=== PATIENT | male | born 2000 | race Caucasian/White ===

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

== ENCOUNTER 2021-07-22 01:15 | Emergency (ER) | payer OTHER ==
--- OUTSIDE RECORDS SUMMARY | 2021-07-22 01:17 | XMS REPORT | Continuity of Care Document ---
:2000 Author Organization [facility] t Address [address] [place] [address] Care Team Providers Name Role Phone COLEEN Attending Clinician Unavailable Problems This patient has no known problems. Allergies, Adverse Reactions, Alerts This patient has no known allergies or adverse reactions. Medications This patient has no known medications. Procedures This patient has no known procedures. Encounters Start End Encounter Admission Attending Care Care Encounter Source Date/Time Date/Time Type Type Clinicians Facility Department ID 2021-07-11 2021-07-11 [id number] 00:00:00 00:00:00 [facility] [address] Results This patient has no known results.
[2021-07-22] MEDS ORDERED: dexAMETHasone 10 MG/ML VIAL ONE (02:38)
[2021-07-22 03:20] LABS: Potassium 3.6 mmol/L (3.5-5.1)
[2021-07-22 03:22] LABS: Absolute Lymphocytes (CBC) 1.8 K/uL (0.7-4.9); Hematocrit 41.8 % (39.6-49.0); MPV 8.7 fL (7.6-11.3); RBC Red Blood Cell Count 4.81 M/uL (4.33-5.43)
--- NOTE | 2021-07-22 04:34 | ER ---
Nurse's Notes [facility] Name: Ananth Dias Age: 20 yrs Sex: Male : 2000 Arrival Date: 07/22/2021 Time: 01:18 Bed 11 Private MD: Diagnosis: Acute lymphadenitis of face, head and neck Presentation: 07/22 02:17 Chief complaint: Patient states: I have had a soar throat for about a week. Coronavirus jb4 screen: At this time, the client does not indicate any symptoms associated with coronavirus-19. Ebola Screen: No symptoms or risks identified at this time. Initial Sepsis Screen: Does the patient meet any 2 criteria? No. Patient's initial sepsis screen is negative. Does the patient have a suspected source of infection? No. Patient's initial sepsis screen is negative. Risk Assessment: Do you want to hurt yourself or someone else? Patient reports no desire to harm self or others. Onset of symptoms was July 22, 2021. Transition of care: patient was not received from another setting of care. 02:17 Method Of Arrival: Ambulatory jb4 02:17 Acuity: ARIELLE 4 jb4 03:51 Acuity: ARIELLE 3 tw5 Historical: - Allergies: 02:18 No Known Allergies; jb4 - Home Meds: 02:18 None [Active]; jb4 - PMHx: 02:18 None; jb4 - PSHx: 02:18 None; jb4 - Immunization history:: Adult Immunizations up to date. - Social history:: Smoking status: Patient denies any tobacco usage or history of. Patient/guardian denies using alcohol, street drugs. - Family history:: not pertinent. - Hospitalizations: : No recent hospitalization is reported. Screenin:48 Abuse screen: Denies threats or abuse. Denies injuries from another. Nutritional tw5 screening: No deficits noted. Tuberculosis screening: No symptoms or risk factors identified. Fall Risk None identified. Assessment: 02:18 General: Appears in no apparent distress. comfortable, Behavior is calm, cooperative, jb4 appropriate for age. Pain: Complains of pain in throat Pain does not radiate. Pain currently is 5 out of 10 on a pain scale. Respiratory: Airway is patent Respiratory effort is even, labored, Respiratory pattern is regular, symmetrical. EENT: Throat is clear is reddened bilaterally with gag reflex present. 04:48 Respiratory: Breath sounds are clear. tw5 Vital Signs: 02:17 BP 110 / 84; Pulse 66; Resp 16; Temp 98.1(TE); Pulse Ox 100% on R/A; Weight 65.77 kg; jb4 Height 6 ft. 1 in. (185.42 cm); Pain 5/10; 02:17 Body Mass Index 19.13 (65.77 kg, 185.42 cm) jb4 ED Course: 01:18 Patient arrived in ED. bp1 01:30 Silver Shi MD is Attending Physician. rn 02:17 Tez Torres, SERINA is Primary Nurse. jb4 02:18 Triage completed. jb4 02:18 Arm band placed on right wrist. jb4 02:56 Initial lab(s) drawn, by me, sent to lab. Inserted saline lock: 20 gauge in right jb4 antecubital area, using aseptic technique. Blood collected. 03:26 CT Soft Tissue Neck W/contr In Process Unspecified. EDMS 04:48 Patient has correct armband on for positive identification. Bed in low position. Call tw5 light in reach. Side rails up X 1. Pulse ox on. NIBP on. Door closed. Noise minimized. Moved to private room. Verbal reassurance given. 04:48 No provider procedures requiring assistance completed. IV discontinued, intact, tw5 bleeding controlled, No redness/swelling at site. Pressure dressing applied. Administered Medications: 02:56 Drug: Decadron - Dexamethasone 10 mg Route: IVP; Site: right antecubital; jb4 04:48 Follow up: Response: No adverse reaction tw5 Outcome: 04:34 Discharge ordered by . rn 04:48 Discharged to home ambulatory, with family. tw5 04:48 Condition: good 04:48 Discharge instructions given to patient, Instructed on discharge instructions, follow up and referral plans. Demonstrated understanding of instructions, follow-up care, medications, Prescriptions given X 1. 04:49 Patient left the ED. tw5 Signatures: Dispatcher [employer] EDMS Silver Shi MD MD rn Bryson, James, SERINA RN jb4 Jacquesleander Jessica bp1 Cheyanne Coleman tw5 Corrections: (The following items were deleted from the chart) 02:25 02:17 Resp 16bpm; 65.77 kg; Height 6 ft. 1 in.; BMI: 19.1; Pain 5/10; jb4 jb4
--- NOTE | 2021-07-22 04:35 | EDPHYS ---
Physician Documentation [facility] Name: Ananth Dias Age: 20 yrs Sex: Male : 2000 Arrival Date: 07/22/2021 Time: 01:18 Bed 11 Private MD: ED Physician Silver Shi HPI: 07/22 02:31 This 20 yrs old Male presents to ER via Ambulatory with complaints of Sore Throat. rn 02:31 The patient presents with sore throat, pain in neck. The patient describes throat pain rn as raw, swelling sensation. Onset: The symptoms/episode began/occurred 1 week(s) ago. Severity of symptoms: At their worst the symptoms were moderate, in the emergency department the symptoms are unchanged. Modifying factors: The symptoms are alleviated by nothing, the symptoms are aggravated by swallowing, Patient's oral intake status: good. Associated signs and symptoms: Pertinent positives: dysphagia, fever, Sore throat Pertinent negatives. The patient has not experienced similar symptoms in the past. The patient has been recently seen by a physician:. Pt reports sore throat for 1 week, not improving despite abx. NO trauma. Had fever but fever gone. Reports pain with movement of neck and with swallowing. No sob. . Historical: - Allergies: 02:18 No Known Allergies; jb4 - Home Meds: 02:18 None [Active]; jb4 - PMHx: 02:18 None; jb4 - PSHx: 02:18 None; jb4 - Immunization history:: Adult Immunizations up to date. - Social history:: Smoking status: Patient denies any tobacco usage or history of. Patient/guardian denies using alcohol, street drugs. - Family history:: not pertinent. - Hospitalizations: : No recent hospitalization is reported. ROS: 02:31 Constitutional: Negative for chills, and weight loss, Eyes: Negative for injury, pain, rn redness, and discharge, ENT: + sore throat Neck: + neck pain Cardiovascular: Negative for chest pain, palpitations, and edema, Respiratory: Negative for shortness of breath, cough, wheezing, and pleuritic chest pain, Abdomen/GI: Negative for abdominal pain, nausea, vomiting, diarrhea, and constipation, MS/Extremity: Negative for injury and deformity. Exam: 02:31 Constitutional: This is a well developed, well nourished patient who is awake, alert, rn and in no acute distress. Head/Face: Normocephalic, atraumatic. Eyes: Periorbital areas with no swelling, redness, or edema. ENT: + pharyngeal erythema, no swelling or exudate. Uvula midline, no TECHNICAL SALES REPRESENTATIVES. Neck: + tender bilateral cervical LAD, no crepitus, no focal masses, able to extend neck with only mild anterior pain Cardiovascular: Regular rate and rhythm. No pulse deficits. Respiratory: No increased work of breathing, no retractions or nasal flaring. Vital Signs: 02:17 BP 110 / 84; Pulse 66; Resp 16; Temp 98.1(TE); Pulse Ox 100% on R/A; Weight 65.77 kg; jb4 Height 6 ft. 1 in. (185.42 cm); Pain 5/10; 02:17 Body Mass Index 19.13 (65.77 kg, 185.42 cm) jb4 MDM: 01:30 Patient medically screened. rn 04:33 Data reviewed: vital signs, nurses notes, lab test result(s), radiologic studies, CT rn scan, and as a result, I will discharge patient. Counseling: I had a detailed discussion with the patient and/or guardian regarding: the historical points, exam findings, and any diagnostic results supporting the discharge/admit diagnosis, radiology results, the need for outpatient follow up, to return to the emergency department if symptoms worsen or persist or if there are any questions or concerns that arise at home. Response to treatment: the patient's symptoms have mildly improved after treatment, and as a result, I will discharge patient. Special discussion: I discussed with the patient/guardian in detail that at this point there is no indication for admission to the hospital. It is understood, however, that if the symptoms persist or worsen the patient needs to return immediately for re-evaluation. ED course: CT shows nonspecific lymphadenopathy, no deep space infection. 07/22 02:28 Order name: CBC with Diff; Complete Time: 03:25 rn 07/22 02:28 Order name: Basic Metabolic Panel; Complete Time: 03:25 rn 07/22 02:28 Order name: IV Start; Complete Time: 02:56 rn 07/22 02:28 Order name: CT Soft Tissue Neck W/contr rn Administered Medications: : Drug: Decadron - Dexamethasone 10 mg Route: IVP; Site: right antecubital; jb4 04:48 Follow up: Response: No adverse reaction tw5 Disposition Summary: 07/22/21 04:34 Discharge Ordered Location: Home rn Problem: new rn Symptoms: have improved rn Condition: Stable rn Diagnosis - Acute lymphadenitis of face, head and neck rn Followup: rn - With: Private Physician - When: As needed - Reason: Recheck today's complaints, Re-evaluation by your physician Discharge Instructions: - Discharge Summary Sheet rn - Lymphadenopathy rn Forms: - Medication Reconciliation Form rn - Thank You Letter rn - Antibiotic pattern changer and repairer - Prescription Opioid Use rn Prescriptions: - Clindamycin HCl 300 mg Oral Capsule - take 1 capsule by ORAL route every 6 hours for 10 days; 40 capsule; Refills: 0, rn Product Selection Permitted Signatures: Dispatcher [employer] Silver Pereyra MD MD rn Bryson, James, RN RN gini4 Cheyanne Coleman tw5
[2021-07-22 05:07] VITALS: BP 110/84; TEMP 98.1; O2SAT 100
--- NOTE | 2021-07-23 13:29 | RAD REPORT ---
EXAM DESCRIPTION: CT - Soft Tissue Neck W/Contr - 07/22/2021 7:00 am CLINICAL HISTORY: 20 years Male Lymphadenopathy, neck TECHNIQUE: Contrast enhanced CT neck soft tissue with coronal and sagittal reformats. All CT scans a t this facility use dose modulation, iterative reconstruction, and/or weight based dosing when approp riate to reduce radiation dose to as low as reasonably achievable. COMPARISON: None FINDINGS: Oropharynx: Unremarkable. No significant tonsillar enlargement. No peritonsillar abscess. Bilateral tonsilloliths are present. Hypopharynx: Unremarkable Retropharyngeal space: Unremarkable Larynx/epiglottis: Unremarkable. Normal epiglottis. Trachea: Unremarkable Submandibular/parotid glands: Unremarkable. Normal in size. Thyroid: Unremarkable Vessels: Unremarkable Lymph nodes: Multilevel, multi compartmental bilateral nonspecific symmetric lymph nodes are present. No evidence of necrotic adenopathy. Brain: Unremarkable for age. Orbits: Unremarkable. Paranasal sinuses: Well-aerated Mastoid air cells: Well-aerated Bones/joints: Unremarkable Soft tissues: Unremarkable Lung apices: Unremarkable as visualized IMPRESSION: Multilevel, multi compartmental bilateral nonspecific symmetric lymph nodes are present. No evidence of necrotic adenopathy. Continued clinical follow-up recommended. Electronically signed by: Donald Barrientos MD 07/22/2021 4:18 AM CDT Due to temporary technical issues with the PACS/Fluency reporting system, reports are being signed by the in house radiologists without review as a courtesy to insure prompt reporting. The interpreting radiologist is fully responsible for the content of the report.
== END 2021-07-22 04:49 | disposition home or self-care (01) ==
LOC: ER 01:15
DX: L04.0 Acute lymphadenitis of face, head and neck (principal)
CPT/HCPCS: 85025; 80048; 36415; 70491; 96374; 99284; Q9967; J1100

== ENCOUNTER 2024-06-26 20:29 | Emergency (ER) | payer OTHER, SELFPAY ==
[2024-06-26] MEDS ORDERED: TDAP (DIPHTH,PERTUSS(ACELL),TET VAC) 0.5 ML VIAL IMVAC ONE (21:02)
--- NOTE | 2024-06-26 21:09 | RAD REPORT ---
EXAM: CT brain without contrast HISTORY: Fall with dizziness COMPARISON: None TECHNIQUE: Multiple contiguous axial images were obtained and a CT of the brain without contrast.. Sagittal and coronal reconstruction performed. Automated exposure control, adjustment of the mA and/or kV according to patient size, and/or iterative reconstruction. Unless otherwise specified, incidental f indings do not require dedicated imaging follow-up FINDINGS: An intracranial bleed is not seen Ventricles are normal caliber No extra-axial fluid collection noted No significant hypodensity within the brain No fluid within the visualized sinuses or mastoids noted. IMPRESSION: No acute intracranial abnormality noted. If the patient continues to have symptoms to suggest an acute intracranial abnormality then MRI of th e brain would be recommended.
--- NOTE | 2024-06-26 21:16 | ER ---
Nurse's Notes [facility] Name: Ananth Dias Age: 23 yrs Sex: Male : 2000 Arrival Date: 06/26/2024 Time: 20:29 Bed 15 Private MD: Diagnosis: Unspecified injury of head, initial encounter;Facial Laceration/ Laceration without foreign body of cheek and temporomandibular area Presentation: 06/26 20:37 Chief complaint: Chief complaint: Patient states: was mopping and slipped and fell, me1 hitting his forehead on the coffee table. Small laceration and swelling noted to forehead. Pain 2/10. Reports dizziness that is improved since the fall. Denies LOC. 20:38 Coronavirus screen: Vaccine status: Patient reports being unvaccinated. Ebola Screen: me1 No symptoms or risks identified at this time. Initial Sepsis Screen: Does the patient meet any 2 criteria? No. Patient's initial sepsis screen is negative. Does the patient have a suspected source of infection? No. Patient's initial sepsis screen is negative. Risk Assessment: Do you want to hurt yourself or someone else? Patient reports no desire to harm self or others. Onset of symptoms was June 26, 2024 at 20:00. 20:38 Method Of Arrival: Ambulatory [facility] [place] 20:38 Acuity: ARIELLE 3 me1 Triage Assessment: 21:15 General: Appears in no apparent distress. comfortable, slender, well groomed, well vc1 developed, well nourished, Behavior is calm, cooperative, appropriate for age. Pain: Complains of pain in forehead Pain does not radiate. Pain currently is 4 out of 10 on a pain scale. EENT: No deficits noted. No signs and/or symptoms were reported regarding the EENT system. Neuro: Dimas Agitation-Sedation Scale (RASS): 0 - Alert and Calm Level of Consciousness is awake, alert, obeys commands, Oriented to person, place, time, situation, Appropriate for age. Cardiovascular: Heart tones S1 S2 present Capillary refill < 3 seconds Patient's skin is warm and dry. Respiratory: Airway is patent Respiratory effort is even, unlabored, Respiratory pattern is regular, symmetrical, Breath sounds are clear bilaterally. GI: No deficits noted. No signs and/or symptoms were reported involving the gastrointestinal system. : No deficits noted. No signs and/or symptoms were reported regarding the genitourinary system. Derm: Skin is intact, is healthy with good turgor, Skin is dry, Skin is normal, Skin temperature is warm Wound noted forehead Wound is abrasion. Musculoskeletal: Circulation, motion, and sensation intact. Range of motion: intact in all extremities. Historical: - Allergies: 20:40 No Known Allergies; me1 - Home Meds: 20:40 None [Active]; me1 - PMHx: 20:40 None; me1 - PSHx: 20:40 None; me1 - Immunization history:: Adult Immunizations up to date. - Infectious Disease History:: Denies. - Social history:: Smoking status: Patient denies any tobacco usage or history of. Screenin:13 [facility] ED Fall Risk Assessment (Adult) History of falling in the last 3 months, vc1 including since admission Yes- single mechanical fall (1 pt) Confusion or Disorientation No (0 pts) Intoxicated or Sedated No (0 pts) Impaired Gait No (0 pts) Mobility Assist Device Used No (0 pt) Altered Elimination No (0 pt) Score/Fall Risk Level 0 - 2 = Low Risk Oriented to surroundings, Maintained a safe environment, Educated pt \T\ family on fall prevention, incl call for assistance when getting out of bed. Abuse screen: Denies threats or abuse. Nutritional screening: No deficits noted. Tuberculosis screening: No symptoms or risk factors identified. Assessment: 21:16 General: administered Boostrix. vc1 21:17 Reassessment: see triage assessment. vc1 21:36 Reassessment: Patient appears in no apparent distress at this time. Patient and/or vc1 family updated on plan of care and expected duration. Pain level reassessed. Patient is alert, oriented x 3, equal unlabored respirations, skin warm/dry/pink. Vital Signs: 20:38 BP 143 / 90; Pulse 80; Resp 16; Temp 98.4; Pulse Ox 98% ; Weight 63.5 kg; Height 6 ft. me1 2 in. ; Pain 2/10; 21:35 BP 117 / 84; Pulse 68; Resp 16; Pulse Ox 99% ; vc1 20:38 Body Mass Index 17.97 (63.50 kg, 187.96 cm) me1 20:38 Pain Scale: Adult me1 Anyi Coma Score: 21:13 Eye Response: spontaneous(4). Motor Response: obeys commands(6). Verbal Response: kb oriented(5). Total: 15. ED Course: 20:31 Patient arrived in ED. jj6 20:31 [facility]C [facility] kb 20:31 Rosas Quan MD is Attending Physician. kb 20:40 Triage completed. me1 20:40 Arm band placed on Patient placed in an exam room. me1 20:57 CT Head Brain wo Cont In Process Unspecified. EDMS 20:57 Lara Vega, RN is Primary Nurse. kj2 21:14 Patient did not have IV access during this emergency room visit. Wound care: to vc1 abrasion, located on forehead was cleaned with Hibiclens, dressed with steristrips. 21:15 Patient has correct armband on for positive identification. Bed in low position. Call vc1 light in reach. Adult w/ patient. Pulse ox on. NIBP on. 21:36 Provided Education on: wound care. vc1 21:36 No provider procedures requiring assistance completed. vc1 Administered Medications: 21:17 Drug: Boostrix Tdap IM 0.5 ml IM once; as a single dose Route: IM; Site: right deltoid; vc1 21:37 Follow up: Response: (VIS) Vaccine information sheet provided today. Questions and/or vc1 concerns addressed. VIS edition date: Nov 10, 2020.; No adverse reaction Medication: 21:16 VIS not applicable for this client. vc1 Outcome: 21:15 Discharge ordered by . kb 21:36 Discharged to home ambulatory, with family, vc1 21:36 Condition: good 21:36 Discharge instructions given to patient, Instructed on discharge instructions, follow up and referral plans. Demonstrated understanding of instructions, follow-up care, wound care, 21:36 Patient left the ED. vc1 Signatures: Dispatcher [employer] EDND Aniyah Camarena FNP-C FNP-Ckb Jeffries Elisabeth jj6 Vania Brar RN RN vc1 Cira Bardales RN RN me1 Lara Vega, SERINA RN kj2 Corrections: (The following items were deleted from the chart) 20:40 20:37 Chief complaint: me1 me1
--- NOTE | 2024-06-26 21:16 | EDPHYS ---
Physician Documentation [facility] Name: Ananth Dias Age: 23 yrs Sex: Male : 2000 Arrival Date: 06/26/2024 Time: 20:29 Bed 15 Private MD: ED Physician Rosas Quan HPI: 06/26 21:13 This 23 yrs old Male presents to ER via Ambulatory with complaints of Head Injury kb Without LOC-Adult, Dizziness. 21:13 Patient is a 23-year-old male who presents for head injury. States he was mopping the floor, slipped in some water, fell and hit his forehead on the coffee table. Denies LOC. States he had some dizziness right afterwards that is mostly resolved at this time. Reports headache 2 out of 10 at this time.. Historical: - Allergies: 20:40 No Known Allergies; me1 - Home Meds: 20:40 None [Active]; me1 - PMHx: 20:40 None; me1 - PSHx: 20:40 None; me1 - Immunization history:: Adult Immunizations up to date. - Infectious Disease History:: Denies. - Social history:: Smoking status: Patient denies any tobacco usage or history of. ROS: 21:12 Constitutional: As per HPI kb Exam: 21:12 Constitutional: This is a well developed, well nourished patient who is awake, alert, kb and in no acute distress. Head/Face: Normocephalic, atraumatic. Eyes: Pupils equal round and reactive to light, extra-ocular motions intact. Lids and lashes normal. Conjunctiva and sclera are non-icteric and not injected. Cornea within normal limits. Periorbital areas with no swelling, redness, or edema. ENT: Moist Mucous membranes Neck: Trachea midline and no cervical lymphadenopathy. Supple, full range of motion without nuchal rigidity, or vertebral point tenderness. No Meningismus. Cardiovascular: Regular rate Respiratory: Respirations even and unlabored. No increased work of breathing. Talking in full sentences MS/ Extremity: Pulses equal, no cyanosis. Neurovascular intact. Full, normal range of motion. Neuro: Awake and alert, GCS 15, oriented to person, place, time, and situation. 21:12 Skin: injury, laceration(s), the wound is approximately 1 cm(s), of the forehead, that can be described as clean, no foreign body, linear, without bleeding, Well-approximated, unable to open laceration, no repair needed, Vital Signs: 20:38 BP 143 / 90; Pulse 80; Resp 16; Temp 98.4; Pulse Ox 98% ; Weight 63.5 kg; Height 6 ft. me1 2 in. ; Pain 2/10; 21:35 BP 117 / 84; Pulse 68; Resp 16; Pulse Ox 99% ; vc1 20:38 Body Mass Index 17.97 (63.50 kg, 187.96 cm) me1 20:38 Pain Scale: Adult me1 Anyi Coma Score: 21:13 Eye Response: spontaneous(4). Motor Response: obeys commands(6). Verbal Response: kb oriented(5). Total: 15. MDM: 20:31 Medical Screening Exam initiated kb 21:13 Differential diagnosis: Contusion of Hematoma on Laceration of Intracranial bleed-. kb Data reviewed: vital signs, nurses notes. Historians other than the Patient: Parent: mother. Counseling: I had a detailed discussion with the patient and/or guardian regarding the historical points, exam findings, and any diagnostic results supporting the discharge/admit diagnosis, radiology results, the need for outpatient follow up, a family practitioner, to return to the emergency department if symptoms worsen or persist or if there are any questions or concerns that arise at home. 06/26 20:38 Order name: CT Head Brain wo Cont; Complete Time: 21:12 kb 06/26 20:38 Order name: Wound Care: clean and apply steristrips; Complete Time: 21:17 kb Administered Medications: 21:17 Drug: Boostrix Tdap IM 0.5 ml IM once; as a single dose Route: IM; Site: right deltoid; vc1 21:37 Follow up: Response: (VIS) Vaccine information sheet provided today. Questions and/or vc1 concerns addressed. VIS edition date: Nov 10, 2020.; No adverse reaction Disposition: 22:44 Co-signature as Attending Physician, Rosas Quan MD I agree with the assessment sp4 and plan of care. I reviewed the patient's care provided by the Advanced Practice Provider and agree with the diagnosis and treatment plan. Disposition Summary: 06/26/24 21:15 Discharge Ordered Notes: Location: Home kb Condition: Stable kb Diagnosis - Unspecified injury of head, initial encounter kb - Facial Laceration/ Laceration without foreign body of cheek and temporomandibular kb area Followup: kb - With: Emergency Department - When: As needed - Reason: Worsening of condition Followup: kb - With: Private Physician - When: 2 - 3 days - Reason: Recheck today's complaints, Continuance of care, Re-evaluation by your physician Discharge Instructions: - Discharge Summary Sheet kb - Facial Laceration, [id number] kb - Head Injury, Adult, [id number] kb Forms: - Medication Reconciliation Form kb - Antibiotic Education kb - Prescription Opioid Use kb - Patient Portal Instructions kb - Leadership Thank You Letter kb Signatures: Dispatcher [employer] EDAniyah Fuentes FNP-Darell ABREU-Vania Soares RN RN vc1 Rosas Quan MD MD sp4 Cira Bardales RN RN me1 Corrections: (The following items were deleted from the chart) 20:39 20:39 Head Brain Wo [id number].RAD.[id number] ordered. EDMS EDMS
[2024-06-26 21:41] VITALS: TEMP 98.4
[2024-06-26 21:42] VITALS: BP 117/84; O2SAT 99
== END 2024-06-26 21:36 | disposition home or self-care (01) ==
LOC: ER 20:29
DX: S01.81XA Laceration without foreign body of other part of head, initial encounter (principal)
CPT/HCPCS: 70450; 96372; 99284